=== PATIENT | male | born 1945 | race Caucasian/White ===

== ENCOUNTER 2018-12-23 03:21 | Inpatient (IN) | payer OTHER ==
[~2018-12-23] VITALS: Ht 177.8 cm; Wt 121.1 kg
[2018-12-23] VITALS (17 sets, daily range): BP systolic 114–156; BP diastolic 83–124
[2018-12-23] MEDS ORDERED: DILTIAZEM HCL 5 MG/ML 5 ML VIAL IV STA ×2 (03:33→03:36)
[2018-12-23] MEDS ORDERED: DILTIAZEM HCL VIAL 5 ML ONE (03:35)
[2018-12-23] MEDS ORDERED: SODIUM CHLORIDE 0.9% 1000ML 1,000 ML IV SCH (03:45)
[2018-12-23 03:46] LABS: HEMATOCRIT 45.7 % (38.2-49.6); MEAN CORPUSCULAR HEMOGLOBIN 30.2 pg (28-32); MEAN CORPUSCULAR HGB CONC 32.8 g/dL (31-35); MEAN CORPUSCULAR VOLUME 92.1 fL (81-99); PLATELET COUNT 163 x10e3/uL (140-360); RED BLOOD COUNT 4.96 x10e6/uL (4.3-5.7); RED CELL DISTRIBUTION WIDTH 14.1 % (11.7-14.4)
[2018-12-23 04:02] LABS: INR 0.91; PROTHROMBIN TIME 12.7 seconds (11.9-14.5)
[2018-12-23 04:03] LABS: PARTIAL THROMBOPLASTIN TIME 27.7 seconds (23.8-35.5)
--- NOTE | 2018-12-23 04:03 | NUR ---
MD AWARE 82/49 BP. RECEIVED VO FOR 500CC NS BOLUS. GIVEN
[2018-12-23 04:12] LABS: ALANINE AMINOTRANSFERASE 36 IU/L (0-55); ALBUMIN 3.9 g/dL (3.5-5.0); ALBUMIN/GLOBULIN RATIO 1.4 (0.8-2.0); ALKALINE PHOSPHATASE 74 IU/L (40-150); ANION GAP 18.6 mmol/L (8-16); BLOOD UREA NITROGEN 19 mg/dL (7-26); BUN/CREATININE RATIO 21 (6-25); CALCIUM 9.3 mg/dL (8.4-10.2); CARBON DIOXIDE 21 mmol/L (22-29); CHLORIDE 104 mmol/L (98-107); CREATINE KINASE 143 IU/L (30-200); CREATININE, SERUM 0.92 mg/dL (0.72-1.25); EST GLOMERULAR FILTRATION RATE > 60 ML/MIN (60-); GLUCOSE 124 mg/dL (74-118); POTASSIUM 3.6 mmol/L (3.5-5.1); SODIUM 140 mmol/L (136-145)
[2018-12-23] MEDS ORDERED: ASPIRIN 81 MG CHEW TAB PO ONE (04:15)
--- NOTE | 2018-12-23 04:15 | NUR ---
ST ON MONITOR, PT STATES FEELS LIGHT HEADED. MD AWARE OF VITAL SIGNS.
--- NOTE | 2018-12-23 04:22 | NUR ---
REPEAT EKG TO
[2018-12-23] MEDS: METOPROLOL TARTRATE 25 MG TAB PO SCH ×2 (04:30→16:01)
[2018-12-23] MEDS ORDERED: AMIODARONE HCL 150 MG/100 ML BAG IV ONE (04:45)
[2018-12-23] MEDS ORDERED: AMIODARONE HCL 900 MG in DEXTROSE 5% 500ML 500 ML IV STA (04:46)
--- NOTE | 2018-12-23 04:46 | Diagnostic Imaging Report ---
EXAMINATION: CHEST SINGLE (PORTABLE) INDICATION: CHEST PAIN COMPARISON: None FINDINGS: TUBES and LINES: None. LUNGS: There are bibasilar atelectasis. There is no evidence of pneumonia or pulmonary edema. PLEURA: No pleural effusion or pneumothorax. HEART AND MEDIASTINUM: The cardiomediastinal silhouette is unremarkable. BONES AND SOFT TISSUES: No acute osseous lesion. Soft tissues are unremarkable. UPPER ABDOMEN: No free air under the diaphragm. IMPRESSION: Bibasilar atelectasis. Signed by: Dr. Linda Collier M.D. on 12/23/2018 4:43 AM
[2018-12-23] MEDS ORDERED: AMIODARONE 900MG 500 ML IV ONE (04:59)
[2018-12-23] MEDS ORDERED: AMIODARONE HCL 150MG 100 ML ONE (04:59)
[2018-12-23] MEDS ORDERED: SODIUM CHLORIDE 0.9% 50ML 50 ML ONE (05:05)
[2018-12-23] MEDS ORDERED: IOPAMIDOL 370 MG/ML 200 ML INFUS..BTL INJ ONE (05:06)
--- NOTE | 2018-12-23 06:00 | NUR ---
ACCOMPANIED PATIENT TO CT WITH PORTABLE MONITORS. TOLERATED WELL. PRESSURE RELIEVING AIR MATTRESS PLACED ON STRETCHER FOR PATIENT COMFORT
--- NOTE | 2018-12-23 06:21 | NUR ---
VOIDED APPROX 400ML IN URINAL
--- NOTE | 2018-12-23 06:30 | Diagnostic Imaging Report ---
EXAM: CT Chest WITH contrast 12/23/2018 4:52 AM INDICATION: Chest pain, tachycardia. Concern for pulmonary embolism. COMPARISON: None TECHNIQUE: Chest was scanned utilizing a multidetector helical scanner from the lung apex through the level of the adrenal glands without administration of IV contrast. Coronal and sagittal reformations were obtained. Routine protocol was performed. IV CONTRAST: 100 mL of isovue 300 RADIATION DOSE: Total DLP: 651.74 mGy*cm Estimated effective dose: (DLP x 0.014 x size factor) mSv COMPLICATIONS: None FINDINGS: LINES/ TUBES: None. LUNGS AND AIRWAYS: Lateral lingular pleural parenchymal scarring with calcification. No filling defects within the pulmonary arterial system. Airways are normal. PLEURA: Bilateral small pleural effusions. 2 mm calcified granuloma in the posterior right lower lobe on image 94 series 3. Right middle lobe subsegmental atelectasis. 7 mm groundglass nodule in the posterior left upper lobe on image 33. HEART AND MEDIASTINUM: The thyroid gland is normal. No mediastinal, hilar or axillary lymphadenopathy. The heart is normal in size.. There is no pericardial effusion. Mild focal distention of the proximal to mid thoracic esophagus with a small volume of fluid attenuation. UPPER ABDOMEN: Limited non-contrast views of the upper abdomen show hepatic steatosis. The adrenal glands are normal. BONES: Lower thoracic DISH. SOFT TISSUES: Unremarkable. IMPRESSION: 1. No pulmonary embolism. Signed by: Dr. Linda Collier M.D. on 12/23/2018 6:27 AM
--- NOTE | 2018-12-23 06:52 | NUR ---
RECEIVED REPORT FROM TYRA WARREN
--- NOTE | 2018-12-23 10:45 | NUR ---
called office of dr alba for consult.
[2018-12-23 11:09] LABS: CREATINE KINASE MB 4.3 ng/mL (0-5.0)
[2018-12-23] MEDS ORDERED: AMIODARONE HCL 900 MG in DEXTROSE 5% 500ML 500 ML IV ONE (11:15)
--- NOTE | 2018-12-23 15:25 | History and Physical ---
CHIEF COMPLAINT: Chest pain, left-sided and palpitations. HISTORY OF PRESENT ILLNESS: A 73-year-old male with no past medical history history of hypertension on metoprolol, presents to the ED after he suddenly woke up this morning with sudden onset of chest pain that radiated to his left shoulder and arm. He initially thought that he slept on his left shoulder and decided to see if that would go away, went downstairs, took some medications and came right back up and noticed that his heart rate is racing. The patient called 911 and was brought into the ER for further evaluation. Here, he was found to be in atrial fibrillation with RVR, started on amiodarone drip. He is currently in the ICU, currently doing well with no other issues. His heart rate is still elevated in the 120s. His blood pressure is stable during my evaluation. The patient denies having any heart issues in the past and does not see a aircraft magneto mechanic at the [place] [facility]. REVIEW OF SYSTEMS: 1. Pertinent positive: Chest pain and palpitation. 2. Pertinent negatives: Denies any nausea, vomiting, diarrhea, dysuria, hematuria, frequency, urgency, lightheadedness, dizziness, abdominal pain, headaches, shortness of breath, cough, congestion, fever, or any other complaints. Rest of the 14-point review of systems have been reviewed with the patient and are negative. ALLERGIES: NO KNOWN DRUG ALLERGIES. HOME MEDICATIONS: Metoprolol 25 mg p.o. b.i.d. PAST MEDICAL HISTORY: He just reports hypertension. PAST SURGICAL HISTORY: None. FAMILY HISTORY: Hypertension and diabetes. SOCIAL HISTORY: No drugs. No alcohol. Does not smoke. Good social support. PHYSICAL EXAMINATION: VITAL SIGNS: Temperature 97.6, pulse is 120, respiratory rate is 23, blood pressure is 126/101, pulse ox 100% on 2 L nasal cannula. GENERAL: Not in acute distress. Alert and oriented x3. Cooperative on examination. HEENT: Head is normocephalic and atraumatic. Eyes; pupils are equal, round, and reactive to light bilaterally. Extraocular movements are intact bilaterally. Throat, no evidence of erythema or exudates in the posterior pharynx. Has poor dentition. NECK: Supple. Good range of motion throughout. PULMONARY: Clear to auscultation bilaterally. No wheezing, no rales, no rhonchi, no crackles appreciated. CARDIOVASCULAR: Positive S1 and S2. No murmurs, rubs, or gallops. ABDOMEN: Soft, nontender, and nondistended to palpation. Bowel sounds present. MUSCULOSKELETAL: Strength is 5/5 throughout. No evidence of any muscle deficits on examination. No weakness appreciated. NEUROLOGICAL: Cranial nerves 2 through 12 grossly intact. No evidence of any neurological deficits on exam. SKIN: Intact. Warm to touch. Good cap refill. PSYCHIATRIC: Normal affect and mood. EXTREMITIES: No edema. Good range of motion throughout. LAB FINDINGS: Show white count 7.1, hemoglobin 15, hematocrit 45, and platelets of 163. Coagulation; PT 12, INR 0.91, PTT 27. Chemistry; sodium 140, potassium 3.6, chloride 104, bicarb 21, anion gap of 18, BUN is 19, creatinine is 0.92, glucose 124, and calcium 9.3, magnesium 1.9. LFTs within normal range. Troponins initially were found all to be negative, but elevated to 0.223 . Albumin was 3.9. Urinalysis was negative. MICROBIOLOGY: None. IMAGING STUDIES: Chest x-ray was found to be bibasilar atelectasis. CT chest PE protocol shows no evidence of pulmonary embolism. IMPRESSION: 1. Chest pain, rule out acute coronary syndrome, likely due to atrial fibrillation with RVR. 2. Atrial fibrillation with RVR. 3. Hypertension. 4. Morbid obesity. PLAN: At this time, he is currently on amiodarone drip and currently his heart rate is still elevated, but we have not finished infusion. Continue with amiodarone. Cardiology consultation. Anticoagulation. I will defer this to Cardiology to see if the patient needs to be on Eliquis or Xarelto at this time, if he meets baseline CHADS2 score and other findings. Currently, we will continue with metoprolol 25 mg p.o. b.i.d. that he takes at home. He does not take any other home medications. He will go ahead and stop the IV fluids as well. Continue with same plan of care. I spent more than 35 minutes of critical care time on this case. MD CALI Leahy/CHRIS /[id number]
[2018-12-23] MEDS: ENOXAPARIN SODIUM INJ 100 MG/ML SYR SC SCH (18:05)
[2018-12-23] MEDS ORDERED: METOPROLOL TARTRATE 50 MG TAB PO ONE (18:15)
--- NOTE | 2018-12-23 19:00 | NUR ---
report rc'd from am nurse. to room to assess. pt resting quietly in bed s complaint. aaox3, no distress noted. resp even and unlabored on ra. denies pain or discomfort. st on bedside telemetry monitoring. bed low and locked. siderails up x 2. callbell with in reach. at bedside. plan of care discussed, with questions answer. pt reminded that to remain npo p mn for rimma in am. verbalized understanding of instructions.
--- NOTE | 2018-12-23 19:57 | NUR ---
pt c/o left sided chest pain described as pressure. ekg performed per protocol. dr alba called and informed. new orders rc'd.
[2018-12-23] MEDS ORDERED: MORPHINE SULFATE INJ 4 MG/ML INJ 1ML IV PRN (20:15)
[2018-12-23] MEDS ORDERED: MORPHINE SULFATE 2 MG/ML SYR 1ML IV PRN (20:15)
[2018-12-23 20:36] LABS: CREATINE KINASE MB 4.2 ng/mL (0-5.0)
[2018-12-23] MEDS ORDERED: TEMAZEPAM 15 MG CAP PO ONE (21:00)
--- NOTE | 2018-12-23 21:00 | NUR ---
pt states that chest pain resolved after receiving morphine. pain rated 0/10. no distress noted at this time.
[2018-12-24] VITALS (17 sets, daily range): BP systolic 116–145; BP diastolic 50–103
--- NOTE | 2018-12-24 00:28 | NUR ---
pt resting quietly in bed. no distress noted rep even and unlabored on o2 2l nc. bed low and locked. siderails up x2. callbell [place]. Addendum: 12/24/18 at 0029 by Obed Zamudio LVN pt resting quietly in bed. no distress noted. resp even and unlabored on o2 2l nc. bed low and locked. siderails up x2. callbell within reach.
--- NOTE | 2018-12-24 00:52 | Consultation ---
DATE OF CONSULTATION: 12/23/2018 Cardiology Consult Note REASON FOR CONSULT: AFib with RVR. CHIEF COMPLAINT: Chest pain. HISTORY OF PRESENT ILLNESS: The patient is a 73-year-old man with history of hypertension, prior 40-pack year smoking history, quit many years ago, who presents with episode of left arm pain and chest tightness that started this morning, did not improve after taking a dose of metoprolol at home. He presented to the ER, was noted to be in AFib with RVR, heart rates in the 140s, started on IV amiodarone, admitted to the ICU. Currently says he feels better. No more chest pain. REVIEW OF SYSTEMS: As above, otherwise negative. FAMILY HISTORY: Noncontributory. SOCIAL HISTORY: The patient drinks occasionally. Prior smoker, but quit. No drugs. OUTPATIENT MEDICATIONS: Reviewed. ALLERGIES: NO KNOWN DRUG ALLERGIES. OBJECTIVE: VITAL SIGNS: Temperature afebrile, pulse 121, blood pressure 146/107, and saturating 100% on 2 L nasal cannula. GENERAL: Obese white man, in no acute distress. CARDIOVASCULAR: Irregular rhythm, tachycardic. No murmurs, rubs, or gallops. LUNGS: Clear to auscultation anteriorly. ABDOMEN: Obese, soft, nontender, and nondistended. NEUROLOGIC AND PSYCHIATRIC: Alert and oriented to person, place, and time. Normal affect. INPATIENT MEDICATIONS: Reviewed. TELEMETRY DATA: Reviewed, shows AFib with RVR. LABORATORY DATA: Reviewed. Troponins negative x2. IMAGING DATA: Reviewed. Chest CT is negative for pulmonary embolism. ASSESSMENT: 1. New-onset atrial fibrillation. 2. Acute systolic heart failure exacerbation. 3. Chest pain. PLAN: The patient remains in atrial fibrillation. Continue IV amiodarone drip. We will start anticoagulation with full-dose Lovenox. Plan for CHANNING cardioversion tomorrow to restore sinus rhythm. Continue metoprolol. The patient will need ischemic evaluation once rhythm control is achieved. His initial echo showed EF of about 35% to 40%; however, difficult to assess in a setting of AFib and body habitus being poor. We will get another limited echo once heart rate is better controlled. Thank you for this consult. We will continue to follow. MD WALESKA Dean/CHRIS /[id number]
[2018-12-24] MEDS ORDERED: TEMAZEPAM30 MG PO (02:42)
[2018-12-24 03:21] LABS: CREATINE KINASE MB 3.5 ng/mL (0-5.0)
[2018-12-24] MEDS ORDERED: METOPROLOL TARTRATE 50 MG TAB PO SCH (04:15)
[2018-12-24] MEDS ORDERED: METOPROLOL TARTRATE 25 MG TAB PO SCH (04:15)
[2018-12-24] MEDS ORDERED: AMIODARONE 900MG 500 ML IV ONE (04:22)
[2018-12-24] MEDS ORDERED: AMIODARONE HCL 900 MG in DEXTROSE 5% 500ML 500 ML IV SCH (04:30)
[2018-12-24 05:03] LABS: BASOPHILS # (AUTO) 0.1 (0.0-0.1); BASOPHILS % 0.5 % (0.0-1.0); EOSINOPHILS # (AUTO) 0.2 (0.0-0.4); EOSINOPHILS % 1.9 % (0.0-6.0); HEMATOCRIT 46.4 % (38.2-49.6); HEMOGLOBIN 15.1 g/dL (14.0-18.0); LYMPHOCYTES # (AUTO) 1.7 (1.0-3.2); LYMPHOCYTES % 16.6 % (18.0-39.1); MEAN CORPUSCULAR HEMOGLOBIN 30.6 pg (28-32); MEAN CORPUSCULAR HGB CONC 32.5 g/dL (31-35); MEAN CORPUSCULAR VOLUME 93.9 fL (81-99); MONOCYTES % 9.9 % (4.4-11.3); NEUTROPHILS # (AUTO) 7.5 (2.1-6.9); NEUTROPHILS % 70.9 % (38.7-80.0); PLATELET COUNT 182 x10e3/uL (140-360); RED BLOOD COUNT 4.94 x10e6/uL (4.3-5.7); RED CELL DISTRIBUTION WIDTH 14.5 % (11.7-14.4)
[2018-12-24] MEDS: METOPROLOL TARTRATE 50 MG TAB PO SCH ×2 (05:25→18:19)
[2018-12-24] MEDS: ENOXAPARIN SODIUM INJ 100 MG/ML SYR SC SCH (05:30)
[2018-12-24 05:33] LABS: ALANINE AMINOTRANSFERASE 34 IU/L (0-55); ALBUMIN 3.7 g/dL (3.5-5.0); ALBUMIN/GLOBULIN RATIO 1.2 (0.8-2.0); ALKALINE PHOSPHATASE 69 IU/L (40-150); BLOOD UREA NITROGEN 11 mg/dL (7-26); BUN/CREATININE RATIO 14 (6-25); CALCIUM 9.4 mg/dL (8.4-10.2); CARBON DIOXIDE 28 mmol/L (22-29); CHLORIDE 101 mmol/L (98-107); CHOL/HDL RATIO 2.8 (3.9-4.7); CHOLESTEROL 136 MD/DL (0-199); CREATININE, SERUM 0.76 mg/dL (0.72-1.25); EST GLOMERULAR FILTRATION RATE > 60 ML/MIN (60-); GLUCOSE 106 mg/dL (74-118); HDL CHOLESTEROL 49 MG/DL (40-60); LDL CHOLESTEROL 56 MG/DL (60-130); SODIUM 138 mmol/L (136-145); TRIGLYCERIDES 154 MG/DL (0-149)
[2018-12-24] MEDS ORDERED: BENZOCAINE 20% SPR 60 ML CAN MT ONE (10:45)
[2018-12-24] MEDS ORDERED: LACTATED RINGER'S 1,000 ML ONE (10:47)
[2018-12-24] MEDS ORDERED: PROPOFOL IV EMULSION 10 MG/ML 20 ML VIAL ONE (14:30)
[2018-12-24] MEDS ORDERED: LIDOCAINE HCL 2% LOCAL INJ 5 ML SDV VIAL INJ ONE (14:30)
--- NOTE | 2018-12-24 14:35 | Progress Note ---
DATE: 12/24/2018 Medicine Progress Note SUBJECTIVE: The patient underwent cardioversion by Cardiology today. He is currently doing well. He is in the ICU. Heart rate is in the 60s when I evaluated the patient. PHYSICAL EXAMINATION: VITAL SIGNS: Temperature is 98.2. His heart rate was in the 60s when I evaluated him. Respiratory rate is 23, blood pressure 121/94, pulse ox 98% on 2 L nasal cannula. GENERAL: Not in acute distress. Alert and oriented x3. Cooperative on examination. HEENT: Head is normocephalic and atraumatic. Eyes; pupils are equal, round, and reactive to light bilaterally. Extraocular movements are intact bilaterally. Throat, no evidence of erythema or exudates in the posterior pharynx. Has poor dentition. NECK: Supple. Good range of motion throughout. PULMONARY: Clear to auscultation bilaterally. No wheezing, no rales, no rhonchi, no crackles appreciated. CARDIOVASCULAR: Positive S1 and S2. No murmurs, rubs, or gallops appreciated. ABDOMEN: Soft, nontender, and nondistended to palpation. Bowel sounds present. MUSCULOSKELETAL: Strength is 5/5 throughout. No evidence of any muscle deficits on examination. No weakness appreciated. NEUROLOGICAL: Cranial nerves II through XII grossly intact. No evidence of any neurological deficits on exam. SKIN: Intact. Warm to touch. Good cap refill. PSYCHIATRIC: Normal affect and mood. EXTREMITIES: No edema. Good range of motion throughout. LABORATORY DATA: Lab findings show white count is 10.5, hemoglobin 15 hematocrit 46, platelets of 182. Chemistries reviewed and stable. IMAGING STUDIES: None. IMPRESSION: 1. Atypical chest pain. 2. Atrial fibrillation with rapid ventricular response, status post cardioversion performed on 12/24/2018. 3. Hypertension. 4. Morbid obesity. PLAN: At this time, the patient is doing well with no complaints. He is on rate control medications on amiodarone and was started on oral Xarelto. We will continue to monitor the patient very closely. Resume same medications with no changes. Labs reviewed and stable. If the patient is stable tomorrow, likely discharge home. MD CALI Leahy/MODL /[id number]
[2018-12-24] MEDS ORDERED: FENTANYL CITRATE/PF 100MCG/2 ML INJ ONE (14:44)
[2018-12-24] MEDS ORDERED: MIDAZOLAM HCL 2 MG/2 ML VIAL ONE (14:44)
--- NOTE | 2018-12-24 15:55 | Progress Note ---
DATE: 12/24/2018 Cardiology Progress Note SUBJECTIVE: Had a CHANNING cardioversion today, back in sinus rhythm. OBJECTIVE: VITAL SIGNS: Temperature afebrile, pulse 64, respiratory rate 23, blood pressure 121/90, and saturating 98% on nasal cannula. GENERAL: Obese, white man, in no acute distress. CARDIOVASCULAR: Regular rate and rhythm. No murmurs, rubs, or gallops. LUNGS: Clear to auscultation bilaterally. ABDOMEN: Soft, nontender, and nondistended. NEURO AND PSYCH: Alert and oriented to person, place, and time. Normal affect. INPATIENT MEDICATIONS: Reviewed. LABORATORY DATA: Reviewed. TELEMETRY DATA: Reviewed. Atrial fibrillation with RVR, now converted back into normal sinus rhythm after cardioversion. ASSESSMENT: 1. New onset atrial fibrillation, atrial flutter, status post cardioversion, now with sinus rhythm. 2. Acute systolic heart failure exacerbation. 3. Chest pain. PLAN: The patient has now converted into normal sinus rhythm. We will foreign exchange position clerk to oral amiodarone. We will also foreign exchange position clerk to oral rivaroxaban. Echo showed decrease EF, however, this was in the setting of tachycardia, so we will repeat an echo to document final ejection fraction. If ejection fraction remains low, we may need an ischemic workup. Otherwise, he is doing well and is okay to be transferred out of the ICU. We will continue to follow. MD WALESKA Dean/CHRIS /[id number]
[2018-12-24] MEDS ORDERED: RIVAROXABAN 20 MG TABLET PO SCH (17:00)
[2018-12-24] MEDS: AMIODARONE HCL 200 MG TAB PO SCH (18:18)
[2018-12-24] MEDS ORDERED: NON-FORMULARY MEDICATION (Temazepam 30 MG) PO SCH (21:00)
[2018-12-24] MEDS ORDERED: TEMAZEPAM 15 MG CAP PO SCH (21:00)
[2018-12-24] MEDS: GABAPENTIN 100 MG CAP PO SCH (21:08)
[2018-12-25 03:00] VITALS: BP 137/64
[2018-12-25] MEDS: METOPROLOL TARTRATE 50 MG TAB PO SCH (04:56)
--- NOTE | 2018-12-25 06:30 | NUR ---
Received report from slot shift supervisor nurse at this time. Patient is A&O and asking when we think he might go home. I let the patient know that I would speak to Dr. Aleman and Dr. Christiansen about possible discharge. Patient has no complaints of pain. Call linda within reach.
[2018-12-25 07:19] VITALS: BP_SYST 142; BP_SYST 158; BP_DIAS 84; BP_DIAS 88
[2018-12-25 08:09] VITALS: BP 158/84
[2018-12-25] MEDS: AMIODARONE HCL 200 MG TAB PO SCH (08:48)
[2018-12-25] MEDS: GABAPENTIN 100 MG CAP PO SCH (08:48)
[2018-12-25 12:01] VITALS: BP 166/90
[2018-12-25] MEDS ORDERED: XARELTO20 MG PO (12:27)
[2018-12-25] MEDS ORDERED: AMIODARONE HCL200 MG PO (12:28)
[2018-12-25] MEDS ORDERED: METOPROLOL TART50 MG PO (12:28)
--- NOTE | 2018-12-25 15:46 | Progress Note ---
DATE: 12/25/2018 Medicine Progress Note SUBJECTIVE: The patient is doing well today with no complaints. His heart rate is better controlled. I think he is in the process of being discharged today. Prescription for Xarelto, beta-blockade, amiodarone have been written and placed in the chart. Await for final cardiac recommendations. Family has some questions to talk with them about. PHYSICAL EXAMINATION: VITAL SIGNS: He is afebrile, normotensive, respiratory rate is 27, blood pressure 160/90, pulse is 94. GENERAL: Not in acute distress. Alert and oriented x3. Cooperative on examination. HEENT: Head; normocephalic and atraumatic. Eyes; pupils are equal, round, and reactive to light bilaterally. Extraocular movements intact bilaterally. NECK: Supple. Good range of motion. Throat; no evidence of erythema or exudates in the posterior pharynx. Has poor dentition. PULMONARY: Clear to auscultation bilaterally. No wheezing, no rales, no rhonchi, no crackles appreciated. CARDIOVASCULAR: Positive S1 and S2. No murmurs, rubs or gallops appreciated. ABDOMEN: Soft, nondistended and nontender to palpation. Bowel sounds present. MUSCULOSKELETAL: Strength is 5/5 throughout. No evidence of any muscle deficits on examination. No weakness appreciated. NEUROLOGIC: Cranial nerve II through XII grossly intact. No evidence of any neurological deficits on exam. SKIN: Intact. Warm to touch. Good cap refill. PSYCHIATRIC: Normal affect and mood. EXTREMITIES: No edema. Good range of motion throughout. IMPRESSION: 1. Atypical chest pain. 2. Atrial fibrillation with RVR, status post cardioversion performed on 12/24/2018. 3. Hypertension. 4. Morbidly obesity. PLAN: At this time, now the patient is eager to be discharged home. Family has questions with the landscape drafter before the discharge. The patient did get a cardioversion yesterday on 12/24/2018. CHANNING was performed as well, seems to be normal. he does get discharge and he has been cleared by Cardiology. Amiodarone, beta-blockade and Xarelto have been written and placed in the chart. I have discussed the plan of care with the nursing staff as well as at bedside with patient and his . Answered all their questions. MD CALI Leahy/CHRIS /[id number]
--- NOTE | 2018-12-26 17:17 | Discharge Summary ---
FINAL DISCHARGE DIAGNOSES: 1. Atypical chest pain secondary to atrial fibrillation. 2. Atrial fibrillation with RVR status post cardioversion with CHANNING performed on 12/24/2018 with no evidence of any clot, now converted to normal sinus rhythm. 3. Hypertension. 4. Morbid obesity. CONSULTANTS: Cardiology. VITAL SIGNS: Temperature is 98.1, pulse 74, respiratory rate is 12, blood pressure 166/94, and saturating 97% on room air. LAB FINDINGS: Show white count 10.5, hemoglobin 15, hematocrit is 46, and platelets of 182. Coagulation; PT 12, INR 0.91, PTT 27. Chemistry; sodium 138, potassium 4, chloride 101, bicarb 28, anion gap of 13, BUN 11, creatinine is 0.76, glucose is 106, calcium 9.4, magnesium 1.9. LFTs normal. Troponins were all negative, last one was 0.165. Albumin was 3.7, LDL is 56. MICROBIOLOGY: None. IMAGING STUDIES: Chest x-ray shows bibasilar atelectasis. CT chest with PE protocol shows no evidence of pulmonary embolism. HOSPITAL COURSE: This is a 73-year-old male, morbidly obese, came in with complaints of chest pain, found to be in atrial fibrillation with RVR. He is sent to the ICU. The patient was started on amiodarone drip and converted to oral amiodarone. He was also on heparin drip. Cardiology was consulted. On 12/24/2018, the patient underwent status post cardioversion as well as a CHANNING. No evidence of any vegetations according to the reports or any clots. The patient was then converted to oral Xarelto prior to being discharged on heparin drip postop. The patient's heart rate improved and was back to normal sinus rhythm. The patient was discharged on oral amiodarone, beta-blockers as well as oral Xarelto. The patient was cleared for discharge by Cardiology. The patient had no more symptoms and is ready for discharge home. On the day of discharge, vital signs were stable, labs were stable. The patient seen and evaluated, examined thoroughly on the day of discharge. No other complaints. The patient verbalized understanding and agreed to plan of care. He will follow up accordingly as an outpatient with his primary care physician in 1 week and the hotel receptionist in 2 weeks' time. MEDICATIONS: See med reconciliation form. DISPOSITION: To home. CONDITION: Stable. DIET: Heart healthy. In the event of any worsening symptoms, the patient was advised to come back to the ED for further evaluation. Discharge summary took greater than 35 minutes. MD CALI Leahy/MODDanny /[id number]
== END 2018-12-25 13:37 | disposition home or self-care (01) | DRG 308 ==
LOC: ER 03:21 → ERHOLD 04:31 → ICU 08:08
PROVIDERS: ADMIT Internal Medicine; ATTEND Internal Medicine
PROC: 5A2204Z Restoration of Cardiac Rhythm, Single (ICD-10-PCS; principal; 2018-12-24)
PROC: B24BZZ4 Ultrasonography of Heart with Aorta, Transesophageal (ICD-10-PCS; 2018-12-24)
DX: I48.91 Unspecified atrial fibrillation (principal); I50.21 Acute systolic (congestive) heart failure; I48.92 Unspecified atrial flutter; I11.0 Hypertensive heart disease with heart failure; Z82.49 Family history of ischemic heart disease and other diseases of the circulatory system; Z83.3 Family history of diabetes mellitus; E66.01 Morbid (severe) obesity due to excess calories; Z68.38 Body mass index [BMI] 38.0-38.9, adult; Z87.891 Personal history of nicotine dependence; R07.89 Other chest pain
CPT/HCPCS: 36415; 71045; 71260; 80053; 80061; 82550; 82553; 83735; 84484; 85007; 85025; 85027; 85610; 85730; 93005; 93306; 93312; 96374; 96376; 99285; J1650; J2001; J2250; J2270; J3010; J7030; J7060; J7121; Q9967

== ENCOUNTER 2021-01-13 00:29 | Emergency (ER) | payer OTHER ==
[~2021-01-13] VITALS: Ht 177.8 cm; Wt 121.1 kg
[~2021-01-13 00:29] MED LIST: AMIODARONE HCL200 MG PO; METOPROLOL TART50 MG PO; TEMAZEPAM30 MG PO; XARELTO20 MG PO
[2021-01-13] MEDS ORDERED: CLONIDINE HCL 0.2 MG TAB PO STA (00:44)
[2021-01-13] MEDS ORDERED: LIDOCAINE HCL 1% LOCAL INJ 20 ML VIAL INJ STA (00:44)
[2021-01-13] MEDS ORDERED: LIDOCAINE HCL 2% LOCAL 20 ML VIAL ONE (00:55)
== END 2021-01-13 02:40 | disposition home or self-care (01) ==
LOC: ER 00:46
DX: S01.512A Laceration without foreign body of oral cavity, initial encounter (principal); X58.XXXA Exposure to other specified factors, initial encounter; I10 Essential (primary) hypertension; Z79.01 Long term (current) use of anticoagulants
CPT/HCPCS: 12011; 99283; J2001